=== PATIENT | male | born 1995 | race Caucasian/White ===

== ENCOUNTER 2018-03-04 15:59 | Emergency (ER) | payer MEDICAID ==
[~2018-03-04] VITALS: Ht 177.8 cm; Wt 67.1 kg
[~2018-03-04 15:59] MED LIST: NONE PER PT
[2018-03-04 16:02] VITALS: BP 111/72
== END 2018-03-04 17:13 | disposition home or self-care (01) ==
LOC: ED 17:00
DX: S63.502A Unspecified sprain of left wrist, initial encounter (principal); S63.501A Unspecified sprain of right wrist, initial encounter; K40.90 Unilateral inguinal hernia, without obstruction or gangrene, not specified as recurrent; F17.200 Nicotine dependence, unspecified, uncomplicated; X58.XXXA Exposure to other specified factors, initial encounter; Y93.89 Activity, other specified; Y92.89 Other specified places as the place of occurrence of the external cause; Y99.8 Other external cause status
CPT/HCPCS: 99282

== ENCOUNTER 2018-03-21 17:02 | Emergency (ER) | payer MEDICAID ==
[~2018-03-21] VITALS: Ht 177.8 cm; Wt 68.4 kg
[2018-03-21 17:21] VITALS: BP 118/72
== END 2018-03-21 17:55 | disposition home or self-care (01) ==
LOC: ED 17:48
DX: L02.413 Cutaneous abscess of right upper limb (principal)
CPT/HCPCS: 99283